=== PATIENT | female | born 2000 | race Hispanic/Latino ===

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

== ENCOUNTER 2022-01-15 18:15 | Emergency (ER) | payer OTHER ==
--- OUTSIDE RECORDS SUMMARY | 2022-01-15 18:17 | XMS REPORT | Continuity of Care Document ---
:2000 Author Organization [facility] t Address [address] [place] [address] Care Team Providers Name Role Phone MAUREEN PEDRAZA Primary Care Physician Unavailable DEVORA REYES Attending Clinician Unavailable Maureen Oliveira Attending Clinician MAUREEN PEDRAZA Attending Clinician Unavailable Payers Payer Name Policy Type Policy Number Effective Date Expiration Date Critical access hospital [id number] 2021 [facility] MEDICAID 00:00:00 Problems Condition Condition Condition Status Onset Resolution Last Treating Co mments Source Name Details Category Date Date Treatment Clinician Date No known No known Disease Unive rs active active ity of problems problems [facility] Allergies, Adverse Reactions, Alerts Allergy Allergy Status Severity Reaction(s) Onset Inactive Treating Comm ents Source Name Type Date Date Clinician NO KNOWN Drug Active Univers ALLERGIE Class ity of S [facility] Social History Social Habit Start Date Stop Date Quantity Comments Source Exposure to Not sure [facility] SARS-CoV-2 [facility] (event) [place] Tobacco use and 2021-08-06 2021-08-06 Never used Universit y of exposure 00:00:00 00:00:00 [facility] Alcohol intake 2021-08-06 2021-08-06 Lifetime University of 00:00:00 00:00:00 non-drinker [facility] (finding) [place] Sex Assigned At [birth year] Universit y of 00:00:00 00:00:00 [facility] Smoking Status Start Date Stop Date Source Never smoker [facility] Medications Ordered Filled Start Stop Current Ordering Indication Dosage Frequency Signature Comments Components Source Medication Medication Date Date Medication? Clinician (SIG) Name Name No known No Univers medications -06 ity of 10:17: [address] No known No Univers medications - ity of 10:17: [address] No known No Univers medications - ity of 10:17: [address] Vital Signs Vital Name Observation Time Observation Value Comments Source Systolic blood 2021-08-06 15:13:00 103 mm[Hg] Univer sity of pressure [facility] Diastolic blood 2021-08-06 15:13:00 71 mm[Hg] Unive rsity of pressure [facility] Heart rate 2021-08-06 15:13:00 79 /min [facility] Body temperature 2021-08-06 15:13:00 36.94 Adelita Univ ersity [facility] Body height 2021-08-06 15:13:00 154.9 cm [facility] Body weight 2021-08-06 15:13:00 53.162 kg [facility] BMI 2021-08-06 15:13:00 22.14 kg/m2 [facility] Body mass index 2021-08-06 15:13:00 57.29 % Unive rsity of (BMI) [Percentile] [place] [facility] Per age and sex Branch Oxygen saturation in 2021-08-06 15:13:00 100 /min [facility] Arterial blood by [facility] Pulse oximetry Branch Procedures This patient has no known procedures. Encounters Start End Encounter Admission Attending Care Care Encounter Source Date/Time Date/Time Type Type Clinicians Facility Department ID 2021-08-20 2021-08-20 Outpatient Oleg REYES [facility] [id number] Univers 09:00:00 09:00:00 DEVORA [id number] [facility] 2021-08-20 2021-08-20 Outpatient Oleg REYES [facility] [id number] Univers 09:00:00 09:00:00 DEVORA [facility] 2021-08-06 2021-08-06 [facility] [id number] Univers 10:00:00 10:31:15 Visit Maureen ESPINOSA [id number] i [facility] [id number] Pelon as BRI?BLEA [id number] [address] MEDICAL OFFICE BUILDING 2021-08-06 2021-08-06 Outpatient R WOLF [facility] [id number] Univers 10:30:00 10:30:00 MAUREEN monterroso [facility] 2021-08-06 2021-08-06 Letter [facility] [id number] Univers 00:00:00 00:00:00 (Out) Maureen [facility] [id number] i ty of [place] [id number] Pelon as BRI?BLEA [id number] [address] OFFICE [facility] Results This patient has no known results.
[2022-01-15] MEDS ORDERED: NA CHLORIDE 0.9% 1,000 ML ONE (20:37)
[2022-01-15 20:40] LABS: Urine Blood 2+ (Negative); Urine Glucose Negative (Negative); Urine Protein 1+ (Negative); Urine Specific Gravity >=1.030 (1.005-1.030)
[2022-01-15 20:56] LABS: Urine Bacteria <20 /HPF (<20); Urine Mucus 4+ /HPF (None Seen); Urine RBC 21-50 /HPF (None Seen)
[2022-01-15 21:00] LABS: Absolute Lymphocytes (CBC) 2.1 K/uL (0.7-4.9); Hematocrit 33.9 % (36.0-45.0); Lymphocytes % 23.3 % (15.3-44.8); MPV 7.9 fL (7.6-11.3); RBC Red Blood Cell Count 4.04 M/uL (3.86-4.86)
[2022-01-15 21:15] LABS: Albumin 2.7 g/dL (3.4-5.0); Bilirubin Total 0.1 mg/dL (0.2-1.0); Protein, Total 6.5 g/dL (6.4-8.2)
--- NOTE | 2022-01-15 21:20 | RAD REPORT ---
EXAM DESCRIPTION: CTAbdomen Pelvis W Contrast - 01/15/2022 9:09 pm CLINICAL HISTORY: Abdominal pain. flank pain, lower abd pain COMPARISON: Neck Soft Tissue dated 10/15/2020 TECHNIQUE: Biphasic CT imaging of the abdomen and pelvis was performed with 100 ml non-ionic IV cont rast. All CT scans are performed using dose optimization technique as appropriate and may include automated exposure control or mA/KV adjustment according to patient size. FINDINGS: The lung bases are clear. The liver, spleen, pancreas, adrenal glands and left kidney are within normal limits. Area of edema i s present the posterosuperior right kidney suspicious for pyelonephritis. No perinephric abscess. No bowel obstruction, free air, free fluid or abscess. Small volume pelvic free fluid. The appendix i s normal. No evidence of significant lymphadenopathy. No suspicious bony findings. Urinary bladder wall appears thickened. IMPRESSION: Cystitis with findings of right pyelonephritis present. No perinephric abscess. Small volume of pelvic free fluid.
--- NOTE | 2022-01-15 21:24 | EDPHYS ---
Physician Documentation [facility] Name: Ericka Al Age: 21 yrs Sex: Female : 2000 Arrival Date: 01/15/2022 Time: 18:18 Bed 28 Private MD: ED Physician Deny Last HPI: 01/16 00:41 This 21 yrs old Female presents to ER via Ambulatory with complaints of kb Vomiting, Fever. 00:36 He developed low back pain more on the right side and dysuria while in [place] a few kb days ago. Was seen at an ER in [place] and given medications told she had a kidney infection. Patient has not began medications prescribed in [place]. Father flew patient back into the [place] today and then drove straight here from airport to get seen and treated.. 00:41 The patient presents with flank pain, bilaterally, urinary symptoms, dysuria. Onset: kb The symptoms/episode began/occurred 3 day(s) ago. Modifying factors: The symptoms are alleviated by nothing, the symptoms are aggravated by urinating. Associated signs and symptoms: Pertinent positives: dysuria, fever. Severity of symptoms: At their worst the symptoms were moderate, in the emergency department the symptoms are unchanged. The patient has not experienced similar symptoms in the past. The patient has been recently seen by a physician:. TASTE TESTER: 01/15 18:29 LMP 01/09/2022 tw2 Historical: - Allergies: 18:28 No Known Allergies; tw2 - Home Meds: 18:28 None [Active]; tw2 - PMHx: 18:28 ovary problems; back pain; tw2 - PSHx: 18:28 None; tw2 - Immunization history:: Adult Immunizations up to date. - Social history:: Smoking status: . ROS: 01/16 00:35 Respiratory: Negative for shortness of breath, cough, wheezing, and pleuritic chest kb pain. Constitutional: Positive for fever. : Positive for urinary symptoms, flank pain, burning with urination. All other systems are negative. Exam: 00:36 Constitutional: This is a well developed, well nourished patient who is awake, alert, kb and in no acute distress. Head/Face: Normocephalic, atraumatic. ENT: Moist Mucous membranes Cardiovascular: Regular rate and rhythm with a normal S1 and S2. No gallops, murmurs, or rubs. No pulse deficits. Respiratory: Respirations even and unlabored. No increased work of breathing. Talking in full sentences Skin: Warm, dry with normal turgor. Normal color. MS/ Extremity: Pulses equal, no cyanosis. Neurovascular intact. Full, normal range of motion. Neuro: Awake and alert, GCS 15, oriented to person, place, time, and situation. Moves all extremities. Normal gait. Psych: Awake, alert, with orientation to person, place and time. Behavior, mood, and affect are within normal limits. 00:36 Back: CVA tenderness, that is moderate, is noted on the right. 00:36 Abdomen/GI: Inspection: abdomen appears normal, Bowel sounds: normal, in all quadrants, kb Palpation: soft, in all quadrants, mild abdominal tenderness, in the suprapubic area. Vital Signs: 01/15 18:23 BP 112 / 69; Pulse 87; Resp 17; Temp 98.2(TE); Pulse Ox 100% on R/A; tw2 18:29 Weight 51.26 kg; tw2 22:00 BP 111 / 59; Pulse 89; Resp 16; Pulse Ox 100% ; Pain 3/10; kb3 MDM: 18:30 Patient medically screened. kb 01/16 00:35 Data reviewed: vital signs, nurses notes. Data interpreted: Pulse oximetry: on room air kb is 100 %. Interpretation: normal. Counseling: I had a detailed discussion with the patient and/or guardian regarding: the historical points, exam findings, and any diagnostic results supporting the discharge/admit diagnosis, lab results, radiology results, the need for outpatient follow up, a family practitioner, to return to the emergency department if symptoms worsen or persist or if there are any questions or concerns that arise at home. 01/15 18:30 Order name: CBC with Diff; Complete Time: 21:10 kb 01/15 18:30 Order name: CMP; Complete Time: 21:20 kb 01/15 18:30 Order name: Lipase; Complete Time: 21:20 kb 01/15 18:30 Order name: Urine Microscopic Only; Complete Time: 21:00 kb 01/15 20:41 Order name: Urine Dipstick-Ancillary; Complete Time: 20:45 EDMS 01/15 18:30 Order name: CT Abd/Pelvis - IV Contrast Only; Complete Time: 21:21 kb 01/15 18:30 Order name: IV Saline Lock; Complete Time: 20:53 kb 01/15 18:30 Order name: Labs collected and sent; Complete Time: 20:53 kb 01/15 18:30 Order name: Urine Dipstick-Ancillary (obtain specimen); Complete Time: 20:49 kb 01/15 20:59 Order name: Urine Culture [facility] 01/15 18:30 Order name: Urine Test (obtain specimen); Complete Time: 20:49 kb Administered Medications: 01/15 20:53 Drug: NS 0.9% 1000 ml Route: IV; Rate: 1 bolus; Site: left antecubital; kb3 22:00 Follow up: Response: No adverse reaction; IV Status: Completed infusion; IV Intake: kb3 1000ml 22:12 Drug: Potassium Chloride 40 mEq Route: PO; kb3 22:29 Follow up: Response: No adverse reaction kb3 22:20 Drug: Rocephin (cefTRIAXone) 1 grams {Note: Per Charley RETAIL PROPERTY MANAGER, OK to give IM due to pt c/o kb3 IV hurting. !G Rocephin IM given in left ventrogluteal..} Route: IV; Rate: calculated rate; Site: Other; 22:29 Follow up: Response: No adverse reaction; IV Status: IV converted to saline lock kb3 Disposition Summary: 01/15/22 21:23 Discharge Ordered Location: Home kb Condition: Stable kb Diagnosis - Acute cystitis without hematuria kb - Pyelonephritis acute kb - Hypokalemia kb Followup: kb - With: Emergency Department - When: As needed - Reason: Worsening of condition Followup: kb - With: Private Physician - When: 2 - 3 days - Reason: Recheck today's complaints, Continuance of care, Re-evaluation by your physician Discharge Instructions: - Discharge Summary Sheet kb - Pyelonephritis, Adult, [id number] kb Forms: - Medication Reconciliation Form kb - Thank You Letter kb - Antibiotic Education kb - Prescription Opioid Use kb Prescriptions: - cefpodoxime 200 mg Oral Tablet - take 1 tablet by ORAL route every 12 hours with food; 20 tablet; Refills: 0, kb Product Selection Permitted Signatures: Dispatcher [employer] EDMS Charley Abernathy, APPLICATION PACKAGER-C APPLICATION PACKAGER-Linda Grande RN RN tw2 Madyson Nuñez, RN RN kb3 Corrections: (The following items were deleted from the chart) 01/16 00:36 00:36 Constitutional: This is a well developed, well nourished patient who is awake, kb alert, and in no acute distress. Head/Face: Normocephalic, atraumatic. ENT: Moist Mucous membranes Cardiovascular: Regular rate and rhythm with a normal S1 and S2. No gallops, murmurs, or rubs. No pulse deficits. Respiratory: Respirations even and unlabored. No increased work of breathing. Talking in full sentences Abdomen/GI: Soft, non-tender. No distention Skin: Warm, dry with normal turgor. Normal color. MS/ Extremity: Pulses equal, no cyanosis. Neurovascular intact. Full, normal range of motion. Neuro: Awake and alert, GCS 15, oriented to person, place, time, and situation. Moves all extremities. Normal gait. Psych: Awake, alert, with orientation to person, place and time. Behavior, mood, and affect are within normal limits. kb
--- NOTE | 2022-01-15 21:24 | ER ---
Nurse's Notes [facility] Name: Ericka Al Age: 21 yrs Sex: Female : 2000 Arrival Date: 01/15/2022 Time: 18:18 Bed 28 Private MD: Diagnosis: Acute cystitis without hematuria;Pyelonephritis acute;Hypokalemia Presentation: 01/15 18:23 Chief complaint: Patient states: i was in [place] and my back was hurting and they told tw2 me it was a kidney infection Parent and/or Guardian states: i flew her back since she was in another country so we could get her checked out here. she got back 3 hours. Chief complaint: Patient states: no symptoms now. Coronavirus screen: At this time, the client does not indicate any symptoms associated with coronavirus-19. Ebola Screen: Patient denies travel to an Ebola-affected area in the 21 days before illness onset. Initial Sepsis Screen: Does the patient meet any 2 criteria? No. Patient's initial sepsis screen is negative. Does the patient have a suspected source of infection? No. Patient's initial sepsis screen is negative. Risk Assessment: Do you want to hurt yourself or someone else? Patient reports no desire to harm self or others. Note provider KELSIE Gibson in triage room at this time. Onset of symptoms was January 15, 2022. 18:23 Acuity: DAGOBERTO 3 tw2 18:23 Method Of Arrival: Ambulatory tw2 Triage Assessment: 18:29 General: Appears in no apparent distress. slender, well groomed, Behavior is calm, tw2 cooperative, appropriate for age. Pain: Denies pain. GI: Reports no symptoms currently. 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 - Social history:: Smoking status: . Screenin:15 Abuse screen: Denies threats or abuse. Denies injuries from another. Nutritional kb3 screening: No deficits noted. Tuberculosis screening: No symptoms or risk factors identified. Fall Risk None identified. Assessment: 20:15 General: Appears in no apparent distress. comfortable, Behavior is calm, cooperative, kb3 Received care of pt from [facility]. Pt is AAO x4. Reports pain in her right flank that began 5 days ago while visiting in [place]. Pt was seen in an ER there and diagnosed with a UTI, given a "shot for the infection" but no prescription for antibiotics. Upon returning home today, pt's father wanted another evaluation of pt's symptoms. 20:15 GI: Abdomen is flat, Bowel sounds present X 4 quads. Abd is soft Abdomen is tender to kb3 palpation in suprapubic area Reports lower abdominal pain, nausea, right flank pain. 20:15 : Reports pain in right in suprapubic area flank(s), urgency, urinary frequency. kb3 Vital Signs: 18:23 BP 112 / 69; Pulse 87; Resp 17; Temp 98.2(TE); Pulse Ox 100% on R/A; tw2 18:29 Weight 51.26 kg; tw2 22:00 BP 111 / 59; Pulse 89; Resp 16; Pulse Ox 100% ; Pain 3/10; kb3 ED Course: 18:18 Patient arrived in ED. rg4 18:20 [facility] Abernathy [facility]C [facility] kb 18:20 Deny Last MD is Attending Physician. kb 18:23 Arm band placed on. tw2 18:27 Triage completed. tw2 20:15 Patient has correct armband on for positive identification. Bed in low position. Call kb3 light in reach. Side rails up X 1. Adult w/ patient. 20:15 No provider procedures requiring assistance completed. kb3 20:20 Kellie Velasquez is Primary Nurse. tw5 20:21 Kellie Velasquez is Primary Nurse. tw5 21:11 CT Abd/Pelvis - IV Contrast Only In Process Unspecified. EDMS 22:20 IV discontinued, intact, bleeding controlled, No redness/swelling at site. Pressure kb3 dressing applied. Administered Medications: 20:53 Drug: NS 0.9% 1000 ml Route: IV; Rate: 1 bolus; Site: left antecubital; kb3 22:00 Follow up: Response: No adverse reaction; IV Status: Completed infusion; IV Intake: kb3 1000ml 22:12 Drug: Potassium Chloride 40 mEq Route: PO; kb3 22:29 Follow up: Response: No adverse reaction kb3 22:20 Drug: Rocephin (cefTRIAXone) 1 grams {Note: Per Charley MOTOR RUNNER, OK to give IM due to pt c/o kb3 IV hurting. !G Rocephin IM given in left ventrogluteal..} Route: IV; Rate: calculated rate; Site: Other; 22:29 Follow up: Response: No adverse reaction; IV Status: IV converted to saline lock kb3 Medication: 20:15 VIS not applicable for this client. kb3 Intake: 22:00 IV: 1000ml; Total: 1000ml. kb3 Outcome: 21:23 Discharge ordered by MD. kb 22:37 Discharged to home ambulatory, with family. kb3 22:37 Condition: stable 22:37 Discharge instructions given to patient, Instructed on discharge instructions, follow up and referral plans. medication usage, Demonstrated understanding of instructions, follow-up care, medications, Prescriptions given X 1. 22:39 Patient left the ED. kb3 Signatures: Dispatcher [employer] EDMS Charley Abernathy, RESIDENTIAL LAWN SPECIALIST-C RESIDENTIAL LAWN SPECIALIST-Linda Grande, RN RN tw2 Daya Hammer rg4 Kellie Velasquez tw5 Madyson Nuñez, RN RN kb3 Corrections: (The following items were deleted from the chart) 22:33 22:32 GI: Abdomen is flat, Bowel sounds present X 4 quads. Abd is soft Abdomen is kb3 tender to palpation in suprapubic area Reports lower abdominal pain, nausea, right flank pain kb3
[2022-01-15] MEDS ORDERED: NA CHLORIDE 0.9% 0 ML ONE (22:15)
[2022-01-15] MEDS ORDERED: CEFTRIAXONE 1000 MG/VIAL ONE (22:15)
[2022-01-15] MEDS ORDERED: POTASSIUM CL SA 10 MEQ TAB PO ONE (22:15)
[2022-01-15] MEDS ORDERED: LIDOCAINE 1% MPF 2 ML AMPULE ONE (22:20)
[2022-01-17 07:31] VITALS: TEMP 98.2; O2SAT 100
[2022-01-17 07:33] VITALS: BP 111/59
== END 2022-01-15 22:39 | disposition home or self-care (01) ==
LOC: ER 18:15
DX: N30.00 Acute cystitis without hematuria (principal); N10 Acute pyelonephritis; E87.6 Hypokalemia
CPT/HCPCS: 96361; 87088; 85025; 87086; 36415; 83690; 80053; 74177; 96374; 99283; Q9967; J7030; 81003; 81015